=== PATIENT | female | born 1985 ===

== ENCOUNTER 2016-09-27 05:05 | Inpatient (IN) | payer MEDICAID ==
[2016-09-27] MEDS ORDERED: IV START KIT ONE (05:12)
[2016-09-27] MEDS ORDERED: LACTATED RINGERS 1,000 ML ONE (05:13)
[2016-09-27] MEDS: LACTATED RINGERS 1,000 ML IV PRN ×2 (05:30→07:10)
[2016-09-27 05:42] VITALS: BMI 37.5
[2016-09-27] MEDS ORDERED: CEFAZOLIN SODIUM 2 GRAM DUPLEX 2 G in Premix (D5W) 50 ml 1 EACH IV PRN (06:13)
[2016-09-27] MEDS ORDERED: SPINAL PROCEDURAL TRAY 1 EACH ONE (06:42)
[2016-09-27] MEDS ORDERED: OXYTOCIN 10 UNITS/ML VIAL ONE ×3 (06:47→08:18)
[2016-09-27] MEDS ORDERED: MORPHINE SULFATE (DURAMORPH) 1 MG/ML 10ML AMP ONE (06:47)
[2016-09-27] MEDS ORDERED: EPHEDRINE SULFATE 50 MG/ML 1ML VIAL ONE (06:47)
[2016-09-27] MEDS ORDERED: ONDANSETRON 4 MG/2ML 2 ML VIAL ONE (06:47)
[2016-09-27] MEDS ORDERED: SODIUM CHLORIDE 0.9% FLUSH 10 ML ONE ×3 (06:47→23:41)
[2016-09-27] MEDS ORDERED: CEFAZOLIN SODIUM 2 GRAM DUPLEX 50 ML IV ONE (06:54)
[2016-09-27 07:02] LABS: HEMATOCRIT 38.5 % (37.0-47.0); HEMOGLOBIN 12.5 gm/l (12.0-16.0); MEAN CELL VOLUME 84.1 fl (81.0-99.0); MEAN CORPUSCULAR HEMOGLOBIN 27.3 pg (27.0-31.0); MEAN CORPUSCULAR HGB CONC 32.5 g/dl (33.0-37.0); RED CELL DISTRIBUTION WIDTH 14.6 % (11.5-14.5)
[2016-09-27] MEDS ORDERED: DEXAMETHASONE SOD PHOS 4 MG/1 ML VIAL ONE (07:55)
[2016-09-27] MEDS ORDERED: KETOROLAC TROMETHAMINE 30 MG/ML 1 ML VIAL ONE (07:55)
[2016-09-27] MEDS ORDERED: FENTANYL 100 MCG/2 ML VIAL ONE ×2 (08:13→08:59)
[2016-09-27] MEDS ORDERED: SURGICEL 3X4 1 EACH PACKET ONE (09:02)
[2016-09-27] MEDS ORDERED: HYDROMORPHONE HCL 2 MG/ML SYRINGE ONE (09:12)
[2016-09-27] MEDS ORDERED: LANOLIN 50 APPLIC/7G TUBE TP PRN (09:47)
[2016-09-27] MEDS ORDERED: PROMETHAZINE HCL 25 MG/ML VIAL IM PRN ×2 (09:47→10:15)
[2016-09-27] MEDS ORDERED: DIPHENHYDRAMINE HCL 25 MG CAPSULE PO PRN (09:47)
[2016-09-27] MEDS ORDERED: DIPHENHYDRAMINE HCL 50 MG/1 ML VIAL IV PRN ×2 (09:47→10:15)
[2016-09-27] MEDS ORDERED: HYDROMORPHONE HCL 2 MG/ML SYRINGE IV PRN (10:15)
[2016-09-27] MEDS ORDERED: NALOXONE HCL 0.4 MG/ML VIAL IV PRN (10:15)
[2016-09-27] MEDS ORDERED: EPHEDRINE SULFATE 50 MG/ML 1ML VIAL IV PRN (10:15)
[2016-09-27] MEDS ORDERED: ONDANSETRON 4 MG/2ML 2 ML VIAL IV PRN (10:15)
--- NOTE | 2016-09-27 12:28 | PDOC37 ---
Procedure: Repeat Low Transverse Section and bilateral tubal ligation Date of Procedure: 09/27/16 Preoperative Diagnosis: 1. 39 week intrauterine . 2. h/o previous C/S times 3 3. Undesired fertility Postoperative Diagnosis: Same Surgeon: Maine Doherty MD Assist: Khoi Lee MD Indication for Procedure: 31 year old, at 39 weeks 1 days with here for scheduled repeat LTCS and Bilateral Tubal Ligation Anesthesia: Spinal with Duramorph Complications: vertical extension needed of uterine incision Estimated Blood Loss: 1200 mLs IV Fluids: 2200 mLs of LR Medications: 2 gm of Ancef for routine prophylaxis. 20 units of Pitocin. Urine Output: 260 mLs of clear urine Findings: Fluid clear Normal uterus, ovaries, and tubes.normal male, vertex, initially face presentation, rotated to OA manually, apgars of 9/9 Procedure: The patient was taken to the operating room where spinal anesthesia was found to be adequate. She was then prepared and draped in the normal sterile fashion in the dorsal supine position with a leftward tilt. A timeout was performed. A Pfannensteil skin incision was then made with the scalpel and carried through to the underlying layer of fascia with the scalpel. The fascia was incised in the midline and the incision extended laterally with the Fay scissors. The superior aspect of the fascial incision was then grasped with the Trae clamps, elevated, and the underlying rectus muscles dissected off bluntly and sharply where needed. Attention was then turned to the inferior aspect of the incision which, in a similar fashion, was grasped, tented up with the Trae clamps, and the rectus muscle dissected off sharply with Fay scissors. The rectus muscles were then in the midline, and the peritoneum was identified and entered bluntly. The peritoneal incision was then extended with good visualization of the bladder. The mandeep O retractor was placed with good visualization of the bladder, no bladder flap was created. The bladder blade was then reinserted and the lower uterine segment incised in a transverse fashion with the scalpel. The uterine incision was then extended laterally by pulling superolaterally on both sides, but not enough room was noted, so the incision was extended on the left with the bandage scissors, still there was not enough room noted and so a vertical T incision was created with the bandage scissors. the baby was noted to be a face presentation and this was difficult to deliver and the baby was rotated manual to OA, and delivered atraumatically. The nose and mouth were suctioned with bulb suction and the cord was clamped and cut. The infant was handed off to the waiting housekeeping staff. The placenta was then delivered with gentle cord traction. The uterus was then exteriorized and cleared of all clots and debris. The vertical T incision was repaired with 0 vicryl in a running, locked fashion. A second layer of the same suture was used in an imbricating fashion to obtain excellent hemostasis, and a third layer was of O vicryl was used in a baseball stich along the serosa to create good hemostasis. The uterine incision/transverse was repaired with 2 layers of PDS, then a final imbricating layer of 0 vicryl to create good hemostasis. Bilateral tubal ligation: Attention was then turned to the patient's bilateral tubal ligation. A Smith was used to picker packer the right fallopian tube and a Modified Craig-type of tubal ligation was performed using 0 plain gut suture, ligating each tube twice. The midportion was then excised and submitted for pathology. The same procedure was done on the opposite side. unfortunately the mesosalpinx tored on both sides, requiring the procedure to be repeated on the left in a [place], and on the left with a repeat lena. Good hemostasis noted at the end of the procedure. The gutters were cleared of all clots. The uterus was returned to the abdomen. The peritoneum was closed with 2.0 vicryl. The fascia was reapproximated with 0 Vicryl in a running fashion. The skin was closed with beatriz. The patient tolerated the procedure well. Sponge, lap and needle counts were correct times three. A debriefing was held at the end of the procedure with anesthesia and nursing staff. The patient was taken to the recovery room in stable condition.
[2016-09-27] MEDS: LACTATED RINGERS 1,000 ML IV SCH (14:43)
[2016-09-27 17:07] LABS: HEMATOCRIT 31.9 % (37.0-47.0); HEMOGLOBIN 10.4 gm/l (12.0-16.0)
[2016-09-27 21:16] LABS: HEMATOCRIT 31.6 % (37.0-47.0); HEMOGLOBIN 10.4 gm/l (12.0-16.0)
[2016-09-27] MEDS: HYDROMORPHONE HCL 1 MG/ML SYRINGE IV PRN (23:45)
[2016-09-28] MEDS: LACTATED RINGERS 1,000 ML IV SCH ×4 (02:28→20:19)
[2016-09-28] MEDS: DOCUSATE SODIUM 100 MG CAPSULE PO SCH ×3 (02:29→20:13)
[2016-09-28] MEDS ORDERED: SODIUM CHLORIDE 0.9% FLUSH 10 ML ONE (05:37)
[2016-09-28] MEDS: HYDROMORPHONE HCL 1 MG/ML SYRINGE IV PRN (05:42)
[2016-09-28 06:57] LABS: HEMATOCRIT 32.9 % (37.0-47.0); HEMOGLOBIN 10.7 gm/l (12.0-16.0)
[2016-09-28] MEDS: PRENATAL VIT/FE FUMARATE/FA 1 TABLET PO SCH (09:10)
[2016-09-28] MEDS: IBUPROFEN 800 MG TABLET PO PRN ×3 (09:10→20:16)
--- NOTE | 2016-09-28 10:39 | PDOC44 ---
- Subjective Day: 1 Reports Pain Tolerable, Reports , Reports Lochia Moderate, Reports Tolerating Clear Liquids (Walking without dizzyness.), Denies Nausea, Denies Vomiting, Denies Fever - Objective Temp Pulse Resp BP Pulse Ox 98.2 F 86 16 109/61 99 09/28/16 09:20 09/28/16 09:20 09/28/16 09:20 09/28/16 09:20 09/27/16 12:15 Lab Results 09/28/16 09/27/16 09/27/16 06:10 21:06 16:57 Hgb 10.7 L 10.4 L 10.4 L D Hct 32.9 L 31.6 L 31.9 L Current Medications Generic Name Dose Route Start Last Admin Trade Name Freq PRN Reason Stop Dose Admin Diphenhydramine HCl 25 - 50 mg 09/27/16 09:47 Benadryl PO Q6H PRN Itching (Mild/Moderate) Diphenhydramine HCl 25 - 50 mg 09/27/16 09:47 Benadryl IV Q6H PRN Itching (Severe) Docusate Sodium 100 mg 09/27/16 21:00 09/28/16 09:10 Colace PO 100 mg BID TONG Administration Emollient Ointment 1 applic 09/27/16 09:47 [id number] TP PRN PRN sore nipples Lactated Ringer's 1,000 mls @ 125 mls/hr 09/27/16 10:00 09/28/16 02:30 Lactated Ringers IV Not Given .Q8H TONG Ibuprofen 800 mg 09/27/16 09:47 09/28/16 09:10 Motrin PO 800 mg Q6H PRN Administration Pain Multivi/Iron Carb/Fe Sulf/FA/Prenat 1 tab 09/28/16 09:00 09/28/16 09:10 Plus PO 1 tab DAILY TONG Administration Oxycodone/Acetaminophen 1 - 2 tab 09/27/16 09:47 Percocet 5/325 PO Q4H PRN Pain (Moderate) Promethazine HCl 25 mg 09/27/16 09:47 Phenergan IM Q6H PRN Nausea/Vomiting Sodium Chloride 10 ml 09/28/16 06:44 Normal Saline 10ml Flush IV PRN PRN See Protocol - Physical Exam General: No Acute Distress Psych/Mental Status: Mood/Affect Appropriate, Bonding Well Lungs: Clear to Auscultation Bilaterally Cardiovascular: Regular Rate and Rhythm, No Murmur Breast: Soft, Skin intact Fundus: Firm, Midline, At Umbilicus Extremities: No Edema Skin: Warm, Dry, No Rash Wound AUTO CLOCKS REPAIRER: Dressing in Place, Dressing Clean/Dry/Intact - Problems:Assessment/Plan (1) delivery delivered Status: Acute Assessment/Plan: Doing well post op day #1. Hg stable. Will slowly advance diet and ambulation. Routine post c section care. Disposition: Stable
[2016-09-28] MEDS: OXYCODONE/ACETAMINOPHEN 5/325 MG TABLET PO PRN ×3 (14:51→20:16)
[2016-09-29] MEDS: OXYCODONE/ACETAMINOPHEN 5/325 MG TABLET PO PRN ×4 (02:01→19:39)
[2016-09-29] MEDS: IBUPROFEN 800 MG TABLET PO PRN ×3 (02:02→18:18)
[2016-09-29] MEDS: DOCUSATE SODIUM 100 MG CAPSULE PO SCH ×2 (09:52→19:39)
[2016-09-29] MEDS: PRENATAL VIT/FE FUMARATE/FA 1 TABLET PO SCH (09:53)
--- NOTE | 2016-09-29 13:38 | SURGPATH ---
[facility] [address] [place] [id number] Patient Name: RAMESH LOPEZ MR#: [id number] : 1985 Gender: F Specimen #: [id number] Collected: 09/27/2016 Received: 09/28/2016 Reported: 09/29/2016 Submitting Phys: ANA PAULA THOMPSON Copy To Phys: [facility] Clinical History / Pre-Operative Diagnosis: NONE PROVIDED Specimen Source / Surgical Procedure Performed: SEGMENT OF RIGHT FALLOPIAN TUBE (WITH STITCH), SEGMENT OF LEFT FALLOPIAN TUBE-REPEAT WITH BILATERAL TUBAL LIGATION Interpretation: BILATERAL TUBAL LIGATION: - FULL CROSS SECTIONS OF BILATERAL FALLOPIAN TUBE SEGMENTS. Electronically Signed Out Inge Wylie M.D. Gross Description: The specimen is received in a formalin filled container labeled with the patient's name and "right and left fallopian tube segments". Two cylindrical segments of pink-moore tissue are 1.0 x 0.6 cm and 1.7 x 0.6 cm. The longer segment has an attached suture and is inked black. A aircraft sales representative cross section of each is submitted in one cassette. Katarina Jones Microscopic Description: A section shows full cross sections of fallopian tube segments, one of which is inked. No pathologic abnormalities are identified. 1: [id number] Z30.2
--- NOTE | 2016-09-29 19:52 | PDOC44 ---
- Subjective Day: 2 (s/p LTCS) Doing well. Ambulating and taking POs. Able to void. No dizziness. Reports Flatus, Reports Pain Tolerable, Reports , Reports Tolerating Regular Diet, Denies Nausea, Denies Vomiting - Objective Temp Pulse Resp BP Pulse Ox 98.4 F 83 18 116/56 99 09/29/16 15:25 09/29/16 15:25 09/29/16 15:25 09/29/16 15:25 09/27/16 12:15 Current Medications Generic Name Dose Route Start Last Admin Trade Name Freq PRN Reason Stop Dose Admin Diphenhydramine HCl 25 - 50 mg 09/27/16 09:47 Benadryl PO Q6H PRN Itching (Mild/Moderate) Diphenhydramine HCl 25 - 50 mg 09/27/16 09:47 Benadryl IV Q6H PRN Itching (Severe) Docusate Sodium 100 mg 09/27/16 21:00 09/29/16 09:52 Colace PO 100 mg BID TONG Administration Emollient Ointment 1 applic 09/27/16 09:47 09/29/16 10:34 [id number]-[id number] TP 1 tube PRN PRN Administration sore nipples Ibuprofen 800 mg 09/27/16 09:47 09/29/16 18:18 Motrin PO 800 mg Q6H PRN Administration Pain Multivi/Iron Carb/Fe Sulf/FA/Prenat 1 tab 09/28/16 09:00 09/29/16 09:53 Plus PO 1 tab DAILY TONG Administration Oxycodone/Acetaminophen 1 - 2 tab 09/27/16 09:47 09/29/16 13:57 Percocet 5/325 PO 1 tab Q4H PRN Administration Pain (Moderate) Promethazine HCl 25 mg 09/27/16 09:47 Phenergan IM Q6H PRN Nausea/Vomiting Sodium Chloride 10 ml 09/28/16 06:44 09/28/16 18:20 Normal Saline 10ml Flush IV 10 ml PRN PRN Administration See Protocol - Physical Exam General: Afebrile, No Acute Distress Psych/Mental Status: Mood/Affect Appropriate, Judgment/Insight Intact, Bonding Well Neurological: Grossly Intact, Alert, Normal Gait, Normal Speech HEENT: Atraumatic, Mucous membr. moist/pink Lungs: Clear to Auscultation Bilaterally Cardiovascular: Regular Rate and Rhythm Breast: Soft Fundus: Firm, Midline, At Umbilicus Abdomen: Normal Bowel Sounds Skin: Normal Color, Warm, Dry, Intact, No Rash Wound TECHNOLOGY PROFESSIONAL: Well Approximated (clean and dry), [place] Intact - Problems:Assessment/Plan (1) delivery delivered Status: Acute Assessment/Plan: Doing well POD#2 s/p repeat csxn w BTL complicated by extension into mesosalpinx bilaterally. Despite signif blood loss 1200 ml, Hgb stabilized at 10.4 and pt is asxmatic. Tolerating diet and ambulation. Routine post c section care. Support BF Anticip DC home tomorrow Disposition: Stable, Anticipate DC Home Tomorrow
[2016-09-30] MEDS: IBUPROFEN 800 MG TABLET PO PRN ×2 (01:33→07:41)
[2016-09-30] MEDS: OXYCODONE/ACETAMINOPHEN 5/325 MG TABLET PO PRN ×3 (01:33→10:13)
[2016-09-30 07:59] VITALS: BP 120/66
[2016-09-30] MEDS: DOCUSATE SODIUM 100 MG CAPSULE PO SCH ×2 (10:13→10:15)
[2016-09-30] MEDS: PRENATAL VIT/FE FUMARATE/FA 1 TABLET PO SCH (10:13)
--- NOTE | 2016-09-30 12:08 | PDOC39B ---
Hospital Course: ADMIT DATE: 09/27/16 DISCHARGE DATE: ADMISSION DIAGNOSES: Previous Section, Undesired fertility PROCEDURES: Repeat Low Transverse Section with T incision on uterus with Bilateral Tubal Ligation HISTORY OF PRESENT ILLNESS: 31 year old G4 T3 L3 at 39 weeks 1 days presented for scheduled repeat section. HOSPITAL COURSE: The patient underwent repeat section with bilateral tubal ligation. Please see operative note for complete details. By day of discharge the patient is ambulating, eating, voiding, and passing flatus without difficulty. Pain is controlled and lochia is appropriate. She is . - Physical Exam Vital Signs: Temp Pulse Resp BP Pulse Ox 98.2 F 89 16 120/66 99 09/30/16 07:55 09/30/16 07:55 09/30/16 07:55 09/30/16 07:55 09/27/16 12:15 General: Afebrile Psych/Mental Status: Mood/Affect Appropriate, Judgment/Insight Intact, Bonding Well Neurological: Grossly Intact, Alert HEENT: Atraumatic, EOMI Lungs: Clear to Auscultation Bilaterally, Normal Air Movement Cardiovascular: Regular Rate and Rhythm, Normal S1, Normal S2 Breast: Soft Fundus: Firm, Midline, Below Umbilicus Wound: Well Approximated, [place] Intact - Discharge Diagnosis (1) delivery delivered Status: Acute Assessment/Plan: Doing well POD#3 s/p repeat csxn w BTL complicated by extension into mesosalpinx bilaterally. Despite signif blood loss 1200 ml, Hgb stabilized at 10.4 and pt is asxmatic. Tolerating diet and ambulation. Routine post c section care. Support BF - Discharge Plan Instruction Forms: Section Discharge Instructions Prescriptions: Docusate Sodium [COLACE 100 MG CAPSULE (SHF)] 100 mg PO BID #60 capsule Ibuprofen [IBUPROFEN 800 MG TABLET (SHF)] 800 mg PO Q8H PRN #100 tablet PRN Reason: Pain Oxycodone HCl/Acetaminophen [PERCOCET 5/325 MG TABLET (SHF)] 1 - 2 tab PO Q4H PRN #40 tablet PRN Reason: Pain (Moderate) Follow-Up: Dai Munoz PA [Primary Care Provider] - 10/01/16
== END 2016-09-30 13:53 | disposition home or self-care (01) | DRG 766 ==
LOC: FBC 05:05 → EDSTATUS 10-03 05:03
PROVIDERS: ADMIT Family Medicine; ATTEND Family Medicine
PROC: 10D00Z1 Extraction of Products of Conception, Low, Open Approach (ICD-10-PCS; principal; 2016-09-27)
PROC: 0UL70ZZ Occlusion of Bilateral Fallopian Tubes, Open Approach (ICD-10-PCS; 2016-09-27)
DX: O34.211 Maternal care for low transverse scar from previous cesarean delivery (principal); Z37.0 Single live birth; Z3A.39 39 weeks gestation of pregnancy; Z30.2 Encounter for sterilization; O09.43 Supervision of pregnancy with grand multiparity, third trimester